=== PATIENT | male | born 1970 | race Caucasian/White ===

== ENCOUNTER 2021-10-20 14:32 | Emergency (ER) | payer BC, OTHER ==
[2021-10-20 14:46] VITALS: BP 127/88; PULSE 77; RESP 20; TEMP 98; BMI 24.6
== END 2021-10-20 15:55 | disposition home or self-care (01) ==
LOC: FER 14:32
DX: S93.431A Sprain of tibiofibular ligament of right ankle, initial encounter (principal); X50.0XXA Overexertion from strenuous movement or load, initial encounter
CPT/HCPCS: 73610-TC-RT-FY; 99283-25